=== PATIENT | male | born 1970 | race Caucasian/White ===

== ENCOUNTER 2023-08-16 10:04 | Emergency (ER) | payer BC, SELFPAY ==
[2023-08-16 10:08] VITALS: BP 121/75; PULSE 97; RESP 19; TEMP 36.7; O2SAT 97; BMI 44.3
--- NOTE | 2023-08-16 10:42 | XRR_ITS ---
PROCEDURE INFORMATION: Exam: XR Chest Exam date and time: 08/16/2023 11:42 AM Age: 53 years old Clinical indication: Other: Facial swelling; Prior surgery; Surgery date: 6+ months; Surgery type: Stent; Additional info: Allergic rxn TECHNIQUE: Imaging protocol: Radiologic exam of the chest. Views: 1 view. COMPARISON: No relevant prior studies available. FINDINGS: Lungs: Unremarkable. No consolidation. Pleural spaces: Unremarkable. No pleural effusion. No pneumothorax. Heart/Mediastinum: Unremarkable. No cardiomegaly. Diaphragm: Mild elevation or eventration of the right hemidiaphragm. Bones/joints: Mild multilevel spondylosis. XR/XR chest 1V portable [id number] IMPRESSION: No acute disease.
--- NOTE | 2023-08-16 10:42 | USR_ITS ---
PROCEDURE INFORMATION: Exam: US Duplex Bilateral Lower Extremity Arteries Exam date and time: 08/16/2023 11:05 AM Age: 53 years old Clinical indication: Other: Diabetic/wound; Additional info: Wounds/diabetic TECHNIQUE: Imaging protocol: Real-time ultrasound scan of the arteries of the bilateral lower extremities with 2-D rolon scale, color Doppler flow and spectral waveform analysis. Images documented and saved. COMPARISON: No relevant prior studies available. FINDINGS: Right common femoral artery: No occlusion or significant stenosis. Normal waveform. Right superficial femoral artery: No occlusion or significant stenosis. Normal waveform. Right popliteal artery: No occlusion or significant stenosis. Normal waveform. Right calf/foot arteries: No occlusion or significant stenosis in the visualized arteries. Normal waveforms. Dorsalis pedis artery is patent. Left common femoral artery: No occlusion or significant stenosis. Normal waveform. Left superficial femoral artery: No occlusion or significant stenosis. Normal waveform. Left popliteal artery: No occlusion or significant stenosis. Normal waveform. Left calf/foot arteries: No occlusion or significant stenosis in the visualized arteries. Normal waveforms. Dorsalis pedis artery is patent. US/CV arterial duplex [facility] [id number] IMPRESSION: No stenosis or occlusion.
--- NOTE | 2023-08-16 10:47 | ED_ITS ---
HPI - Allergic Reaction 2 General: Chief complaint: Allergic Reaction Stated complaint: swelling in face Time Seen by Provider: 08/16/23 10:10 Source: patient Mode of arrival: ambulatory Limitations: no limitations History of Present Illness: HPI narrative: Patient is a 53-year-old male with a history of hyperlipidemia, HTN, and diabetes here for concerns of a possible allergic reaction with lip swelling and arm rash as well as a rash to his legs. Patient states about 3 weeks ago he thought he had developed poison sumac to his bilateral lower extremities as he developed a small red bumps . 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 He states over the past 3 weeks rash has significantly worsened and is now very concerned. He states 3 days ago he was on the road and felt like his tongue was swelling. He was seen at an emergency department in [place] where he was diagnosed with SPENCER induced angioedema as he was on Lisinopril. He states he was given Benadryl, Epinephrine, Pepcid and was told he needs some type of plasma infusion. He reportedly declined this and wanted to go home as his tongue swelling had subsided after the meds. He states he did discontinue the Lisinopril. He later states he had recently had his Mounjaro dose increase and read online this could cause angioedema. Patient states he was doing okay until yesterday when he noticed his lips starting to swell. He does not complain of tongue swelling or trouble breathing or swallowing. He also reports a pruritic erythematous rash to his upper arms. MD complaint: allergic reaction and other (lip swelling, leg rash) Onset (ago): day(s) Exposure: unknown Associated symptoms: Reports rash; Deny abdominal pain or dizziness Severity: moderate Previous Allergic Reaction History: none Review of Systems 2 Const: Denies: fever(s), chills, body aches, fatigue or malaise Eyes: Denies: change in vision, blurry vision, photophobia, floaters or seeing flashes ENMT: Reports: swelling of lips/tongue; Denies: throat pain, uvular edema, enlarged tonsils, odynophagia, mouth pain, oral sores, nasal discharge, nasal congestion or sinus pain Card: Denies: chest pain or palpitations Resp: Denies: dyspnea GI: Denies: abdominal pain : Denies: flank pain or dysuria Musc: Reports: extremity pain (bilateral legs); Denies: neck pain, back pain, joint pain or joint swelling Skin/Breast: Reports: rash and sores Neuro: Denies: headache(s), numbness in extremities, weakness in extremities, sensory changes or dizziness Physical Exam 2 Const: COMMON NORMALS: no acute distress, patient oriented x3, no limitations, alert and well nourished GENERAL APPEARANCE: cooperative NUTRITIONAL APPEARANCE: obese ORIENTATION/CONSCIOUSNESS: Yes awake, Yes oriented to person, Yes oriented to place and Yes oriented to time HENMT: COMMON NORMALS: normocephalic, atraumatic and Normal external nose present HEAD & SCALP: normal to inspection, normocephalic and atraumatic F SPENCER & SINUS: normal facial exam (apart from angioedema to lips) NOSE: Normal external nose present MOUTH: Normal oral and palatal mucosa present and lip abnormal (upper/lower lip swelling) THROAT: posterior oropharynx normal and tonsils normal; no uvular edema Eye: GENERAL EYE: appearance normal, both eyes and all related structures Neck/C-Spine: COMMON NORMALS: full ROM and no lymphadenopathy GENERAL: Yes normal visual inspection Resp: COMMON NORMALS: normal respiratory effort and clear to auscultation bilaterally AUSCULTATION: clear to auscultation bilaterally Cardio: COMMON NORMALS: regular rate and regular rhythm RATE: regular rate RHYTHM: regular rhythm Extremity: COMMON NORMALS: full ROM and capillary refill normal GENERAL: Y es normal exam except as noted OTHER: pt has some large urticarial appearing lesions to bilateral upper arms; mild ecchymosis to bilateral AC spaces from lab draws patient has extensive rash/lesions to bilateral LEs consisting of large plaque/ulcerative lesions some with necrosis; several lesions appear to have had bullous formations that have sloughed and are now necrotic in appearance; there is surrounding erythema; some lesions with drainage and foul odor Neuro: COMMON NORMALS: patient oriented x3 SENSORIUM/ORIENTATION: Yes alert, Yes oriented to person, Yes oriented to place and Yes oriented to time Course 2 Vital Signs: Vital signs: Vital Signs Temperature 98.1 F 08/16/23 10:08 Pulse Rate 85 08/16/23 13:37 Respiratory Rate 18 08/16/23 13:37 Blood Pressure 127/83 08/16/23 13:37 Pulse Oximetry 95 08/16/23 13:37 Oxygen Delivery Me thod Room Air 08/16/23 10:08 MDM - Allergic Reaction Medical Decision Making Patient here for angioedema to his lips, significant rash to his bilateral lower extremities over the past 3 weeks. Angioedema could be secondary to his Lisinopril use. This was discontinued a few days ago. He also notes that his Mounjaro dose has recently been increased which can have the side effect of anaphylaxis and angioedema. He was given IV Solu-Medrol and Benadryl here and does feel like his lip swelling has decreased. I am concerned in regards to the rash to his legs. There are very large open necrotic wounds present. I did discuss rash with our it security analyst, Dr. Gutierres and sent her pictures as well. She was concerned about a possible vasculitis or possibly an evolving pyoderma gangrenosum. I had originally planned on patient being admitted or at least consulted on here by our hospitalist however patient tells me he is a logging truck driver and is a long way from home. He states they do not have money for his to stay in a hotel room while he is here. He states he has a dog in the truck. He wants to go home to [place] and states he will check into their hospital there for further evaluation and treatment. Risks associated with leaving in regards to his worsening angioedema were discussed and he verbalized understanding of risks. He states he feels better and feels comfortable leaving. Medical Records I reviewed the patient's medical records. Lab Data I reviewed the patient's lab results. 08/16/23 10:53 08/16/23 10:53 Radiology Impressions Chest X-Ray 08/16/23 10:42 IMPRESSION: No acute disease. Duplex Scan Lower Extremity Artery 08/16/23 10:42 IMPRESSION: No stenosis or occlusion. Laboratory Results WBC 14.44 10^3/uL (3.29-11.43) H 08/16/23 10:53 RBC 4.97 10^6/uL (3.85-5.65) 08/16/23 10:53 Hgb 13.80 g/dL (11.27-16.99) 08/16/23 10:53 Hct 43.8 % (37-53) 08/16/23 10:53 MCV 88.1 fl (82-101) 08/16/23 10:53 MCH 27.8 pg (27-33) 08/16/23 10:53 MCHC 31.5 g/dL (30-55) 08/16/23 10:53 RDW 14.2 % (12.1-15.1) 08/16/23 10:53 Plt Count 395 10^3/cmm (157-399) 08/16/23 10:53 MPV 9.6 fL (7.4-10.4) 08/16/23 10:53 Neut % (Auto) 88.5 % 08/16/23 10:53 Lymph % (Auto) 7.5 % 08/16/23 10:53 [place] % (Auto) 2.9 % 08/16/23 10:53 Eos % (Auto) 0.6 % 08/16/23 10:53 Baso % (Auto) 0.2 % 08/16/23 10:53 Neut # (Auto) 12.79 10^3/uL (1.8-7.7) H 08/16/23 10:53 Lymph # (Auto) 1.1 10^3/uL (0.8-4.8) 08/16/23 10:53 [place] # (Auto) 0.4 10^3/uL (0.2-0.9) 08/16/23 10:53 Eos # (Auto) 0.1 10^3/uL (0.0-0.8) 08/16/23 10:53 Baso # (Auto) 0.0 10^3/uL (0.0-0.1) 08/16/23 10:53 Nucleated RBC % (auto) 0 % 08/16/23 10:53 Nucleated RBCs # 0.0 /100WBC 08/16/23 10:53 ESR 49 mm/hr (0-10) H 08/16/23 10:53 PT 14.50 SECONDS (12.1-14.9) 08/16/23 10:53 INR 1.10 (0.8-1.2) 08/16/23 10:53 APTT 28.7 SECONDS (23.9-36.7) 08/16/23 10:53 Sodium 139 mmol/L (136-145) 08/16/23 10:53 Potassium 4.1 mmol/L (3.5-5.1) 08/16/23 10:53 Chloride 102 mmol/L (98-107) 08/16/23 10:53 Carbon Dioxide 22 mmol/L (22-29) 08/16/23 10:53 Anion Gap 19.1 (5-19) H 08/16/23 10:53 BUN 26 mg/dL (6-20) H 08/16/23 10:53 Creatinine 1.2 mg/dL (0.7-1.2) 08/16/23 10:53 GFR Calculation 63.6 mL/min (90-130) L 08/16/23 10:53 Glucose 221 mg/dL (65-115) H 08/16/23 10:53 Calculated Osmolality 300 mOsm/kg (285-295) H 08/16/23 10:53 Lactic Acid 2.1 mmol/L (0.5-2.2) 08/16/23 10:53 Calcium 9.0 mg/dL (8.5-10.5) 08/16/23 10:53 Total Bilirubin 0.9 mg/dL (0.15-1.2) 08/16/23 10:53 AST 22 U/L (0-40) 08/16/23 10:53 ALT 34 U/L (0-41) 08/16/23 10:53 Alkaline Phosphatase 100 U/L (40-130) 08/16/23 10:53 C-Reactive Protein 76.3 mg/L (0.0-4.9) H 08/16/23 10:53 Total Protein 7.4 g/dL (6.6-8.7) 08/16/23 10:53 Albumin 3.6 g/dL (3.5-5.2) 08/16/23 10:53 Globulin 3.8 g/dL (1.3-4.6) 08/16/23 10:53 Procalcitonin 0.22 ng/mL (0-0.5) 08/16/23 10:53 All radiology interpretation(s) finalized by discharge Discharge Plan Discharge Patient Disposition: Home Clinical Impression: Severe rash Angioedema Qualifiers: Encounter type: initial encounter Qualified Code(s): T78.3XXA - Angioneurotic edema, initial encounter Condition: Stable Prescriptions: No Action acetaminophen 325 mg Tablet 650 mg PO QID PRN (Reason: Pain) atorvastatin 20 mg tablet 20 mg PO QPM ibuprofen 200 mg Capsule 400 mg PO Q6H PRN (Reason: Pain) glipizide 10 mg tablet 10 mg PO BID prednisone 20 mg tablet 20 mg PO DAILY famotidine 20 mg tablet 20 mg PO BID Banophen 25 mg capsule 25 mg PO DAILY PRN (Reason: Allergy Symptoms) lisinopril-hydrochlorothiazide 20-25 mg tablet 1 tab PO DAILY epinephrine 0.3 mg/0.3 mL auto-injector See Rx Instructions .ROUTE .COMPLEX Rx Instructions: as directed Dulera 100-5 mcg/actuation HFA aerosol inhaler 2 puff INHALATION Q4H PRN (Reason: Shortness Of Breath Or Wheezing) Mounjaro 5 mg/0.5 mL pen injector 5 mg SUBCUT Q7D Rx Instructions: ON WEDNESDAY Discharge Orders: Discharge ED (Routine); Ordered 08/16/23 Ordered By: Angela Brody Activity Restrictions/Additional Instructions: As we discussed I have recommended you be admitted to the hospital here however you declined and would like to go home. You state you will go to your emergency department in [place] for further evaluation and care. There is risks associated with leaving the hospital including worsening lip swelling, tongue swelling, trouble breathing, swallowing, anaphylaxis, and . You have verbalized understanding of these and would like to leave. Coding Level of Care Code ED Clinical Education Assistant for Alexandra Martinez
[2023-08-16 11:08] LABS: Basophils % 0.2 %; Eosinophils # 0.1 10^3/uL (0.0-0.8); Eosinophils % 0.6 %; Hematocrit 43.8 % (37-53); Lymphocytes # 1.1 10^3/uL (0.8-4.8); Lymphocytes % 7.5 %; Mean Corpuscular HGB Conc 31.5 g/dL (30-55); Mean Corpuscular Hemoglobin 27.8 pg (27-33); Mean Corpuscular Volume 88.1 fl (82-101); Mean Platelet Volume 9.6 fL (7.4-10.4); Monocytes # 0.4 10^3/uL (0.2-0.9); Monocytes % 2.9 %; Neutrophils # 12.79 10^3/uL (1.8-7.7); Neutrophils % 88.5 %; Nucleated Red Blood Cells % 0 %; Platelet Count 395 10^3/cmm (157-399); Red Blood Count 4.97 10^6/uL (3.85-5.65); Red Cell Distribution Width 14.2 % (12.1-15.1); White Blood Count 14.44 10^3/uL (3.29-11.43)
[2023-08-16 11:27] LABS: Erythrocyte Sedimentation Rate 49 mm/hr (0-10)
[2023-08-16] MEDS: diphenhydrAMINE 50 mg/mL SDV 1mL IVP (11:28)
[2023-08-16 11:29] VITALS: BP 138/85; PULSE 89; RESP 18; O2SAT 92
[2023-08-16 11:31] LABS: Lactic Sepsis W/Reflex 2.1 mmol/L (0.5-2.2)
[2023-08-16 11:32] LABS: Alanine Aminotransferase 34 U/L (0-41); Albumin Level 3.6 g/dL (3.5-5.2); Alkaline Phosphatase 100 U/L (40-130); Anion Gap 19.1 (5-19); Aspartate Amino Transferase 22 U/L (0-40); Blood Urea Nitrogen 26 mg/dL (6-20); C Reactive Protein 76.3 mg/L (0.0-4.9); Carbon Dioxide 22 mmol/L (22-29); Chloride 102 mmol/L (98-107); Creatinine Clr Calc Pharmacy 98.6447; Globulin 3.8 g/dL (1.3-4.6); Glomerular Filtration Rate 63.6 mL/min (90-130); Glucose 221 mg/dL (65-115); Osmolality Calculated 300 mOsm/kg (285-295); Potassium 4.1 mmol/L (3.5-5.1); Sodium 139 mmol/L (136-145); Total Bilirubin 0.9 mg/dL (0.15-1.2); Total Protein 7.4 g/dL (6.6-8.7)
[2023-08-16 11:36] LABS: Partial Thromboplastin Time 28.7 SECONDS (23.9-36.7)
[2023-08-16 11:38] LABS: Procalcitonin 0.22 ng/mL (0-0.5)
[2023-08-16] MEDS: methylPREDNISolone sod succ 125 mg/2 mL INJ IVP (12:13)
[2023-08-16 12:50] LABS: Reflex Lactate Order REFLEX LACTIC ORDERD
[2023-08-16 13:37] VITALS: BP 127/83; PULSE 85; RESP 18; O2SAT 95
[2023-08-16] MEDS: HYDROcodone-acetaminophen 5-325 mg Tablet 1 TAB PO (14:06)
== END 2023-08-16 14:06 | disposition home or self-care (01) ==
PROVIDERS: Emergency Provider Physician Assistant
DX: R21 Rash and other nonspecific skin eruption (principal); T78.3XXA Angioneurotic edema, initial encounter; Z79.84 Long term (current) use of oral hypoglycemic drugs; Z79.85 Long-term (current) use of injectable non-insulin antidiabetic drugs; X58.XXXA Exposure to other specified factors, initial encounter
CPT/HCPCS: 36415; 71045; 80053; 83605; 84145; 85025; 85610; 85651; 85730; 86140; 87040; 93925; 96374; 96375; 99284; J1200; J2930